=== PATIENT | male | born 1995 | race Asian ===

== ENCOUNTER 2020-09-13 12:37 | Emergency (ER) | payer OTHER ==
[~2020-09-13] VITALS: Ht 175.3 cm; Wt 90.0 kg
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
[2020-09-13 13:45] VITALS: BP 157/81
== END 2020-09-13 14:34 | disposition home or self-care (01) ==
LOC: M ED 12:37 → EDBD 12:37 → M ED 14:34
DX: S39.012A Strain of muscle, fascia and tendon of lower back, initial encounter (principal); S09.90XA Unspecified injury of head, initial encounter; V43.62XA Car passenger injured in collision with other type car in traffic accident, initial encounter; Y92.9 Unspecified place or not applicable; Y93.9 Activity, unspecified; Y99.9 Unspecified external cause status